=== PATIENT | female | born 1980 | race Caucasian/White ===

== ENCOUNTER 2018-12-20 07:46 | Inpatient (IN) | payer BC ==
[2018-12-20] MEDS: AMPICILLIN 2 GM/NS (PMX) 100 ML IV (08:12)
[2018-12-20] MEDS: LACTATED RINGER'S 1,000 ML IV (08:12)
[2018-12-20 08:19] LABS: ADD MAN DIFF? NO
[2018-12-20 08:23] LABS: WHITE BLOOD COUNT 11.8 10^3/ul (4.8-10.8)
[2018-12-20 08:23] LABS: BASOPHILS % 0.2 % (0.0-2.0); EOSINOPHILS # 0.1 10^3/ul (0.0-0.5); EOSINOPHILS % 0.9 % (0.0-7.0); HEMATOCRIT 42.7 % (37.0-47.0); HEMOGLOBIN 14.3 g/dl (12.0-16.0); LYMPHOCYTES # 2.2 10^3/ul (0.8-2.9); LYMPHOCYTES % 18.2 % (15.0-51.0); MEAN CORPUSCULAR HEMOGLOBIN 31.5 pg (29.0-33.0); MEAN CORPUSCULAR HGB CONC 33.5 g/dl (32.0-37.0); MEAN CORPUSCULAR VOLUME 94.1 fl (82.0-101.0); MEAN PLATELET VOLUME 11.4 fl (7.4-10.4); MONOCYTE # 0.4 10^3/ul (0.3-0.9); MONOCYTES % 3.6 % (0.0-11.0); NEUTROPHILS % 76.4 % (39.0-77.0); PLATELET COUNT 198 10^3/UL (140-415); RED BLOOD COUNT 4.54 10^6/ul (4.20-5.40); RED CELL DISTRIBUTION WIDTH 12.8 % (11.5-14.5)
[2018-12-20] MEDS ORDERED: MISOPROSTOL 200 MCG TAB PR ×2 (08:30→13:00)
[2018-12-20] MEDS ORDERED: CARBOPROST 250 MCG INJ IM ×2 (08:30→13:00)
[2018-12-20] MEDS ORDERED: OXYTOCIN 30 UNITS/LR 500 ML IV ×2 (08:30→13:00)
[2018-12-20] MEDS ORDERED: METHYLERGONOVINE 0.2 MG INJ IM ×2 (08:30→13:00)
[2018-12-20 08:43] LABS: INR 0.89; PROTIME 12.2 Sec (11.9-14.9)
[2018-12-20 08:44] LABS: PARTIAL THROMBOPLASTIN TIME 24.1 Sec (23.0-35.0)
[2018-12-20] MEDS: MINERAL OIL LIGHT 10 ML VIAL TOP (10:58)
[2018-12-20] MEDS: OXYTOCIN 30 UNITS/LR 500 ML IV ×2 (10:58→11:20)
[2018-12-20] MEDS: LIDOCAINE 1% (MPF) 30 ML INJ INJ (11:03)
[2018-12-20] MEDS: IBUPROFEN 600 MG TAB PO ×3 (12:10→18:24)
[2018-12-20] MEDS ORDERED: AMPICILLIN 1 GM/NS (PMX) 50 ML IV (12:30)
[2018-12-20] MEDS ORDERED: OXYCODONE/ASPIRIN (4.88/325) TAB PO ×2 (13:00)
[2018-12-20] MEDS ORDERED: ZOLPIDEM 5 MG TAB PO (13:00)
[2018-12-20 14:48] LABS: RAPID PLASMA REAGIN NONREACTIVE (NR)
[2018-12-20] MEDS: BENZOCAINE 20% 56 ML SPRAY TOP (15:10)
[2018-12-20] MEDS: WITCH HAZEL/GLYCERIN PAD PR (15:10)
[2018-12-20] MEDS: LANOLIN HPA 1 PKT TOP (15:10)
[2018-12-20 19:54] LABS: HEPATITIS B SURFACE ANTIGEN NEGATIVE (NEGATIVE)
[2018-12-20] MEDS: SENNA/DOCUSATE NA (8.6MG/50MG) TAB PO (22:38)
[2018-12-21] MEDS: IBUPROFEN 600 MG TAB PO ×4 (00:06→17:25)
[2018-12-21 08:13] LABS: ADD MAN DIFF? NO
[2018-12-21 08:15] LABS: WHITE BLOOD COUNT 13.3 10^3/ul (4.8-10.8)
[2018-12-21 08:15] LABS: BASOPHILS % 0.2 % (0.0-2.0); EOSINOPHILS # 0.1 10^3/ul (0.0-0.5); EOSINOPHILS % 0.6 % (0.0-7.0); HEMOGLOBIN 11.5 g/dl (12.0-16.0); LYMPHOCYTES # 2.5 10^3/ul (0.8-2.9); LYMPHOCYTES % 18.8 % (15.0-51.0); MEAN CORPUSCULAR HEMOGLOBIN 31.1 pg (29.0-33.0); MEAN CORPUSCULAR HGB CONC 32.9 g/dl (32.0-37.0); MEAN CORPUSCULAR VOLUME 94.6 fl (82.0-101.0); MEAN PLATELET VOLUME 11.7 fl (7.4-10.4); MONOCYTE # 0.6 10^3/ul (0.3-0.9); MONOCYTES % 4.1 % (0.0-11.0); NEUTROPHIL # 10.1 10^3/ul (1.6-7.5); NEUTROPHILS % 75.5 % (39.0-77.0); PLATELET COUNT 149 10^3/UL (140-415); RED CELL DISTRIBUTION WIDTH 13.1 % (11.5-14.5)
[2018-12-21] MEDS: SENNA/DOCUSATE NA (8.6MG/50MG) TAB PO ×2 (09:27→21:12)
[2018-12-22] MEDS: IBUPROFEN 600 MG TAB PO ×2 (06:00)
[2018-12-22] MEDS: SENNA/DOCUSATE NA (8.6MG/50MG) TAB PO (08:47)
[2018-12-22] MEDS: DIPHTH/TET/ACEL PERTUSS (ADULT) 0.5 ML VIAL IM* (09:48)
== END 2018-12-22 14:13 | disposition home or self-care (01) | DRG 805 ==
LOC: OBT 07:46 → L-D 07:48 → PP1 12:43
PROVIDERS: Obstetrics & Gynecology
PROC: 10E0XZZ Delivery of Products of Conception, External Approach (ICD-10-PCS; principal; 2018-12-20)
PROC: 0HQ9XZZ Repair Perineum Skin, External Approach (ICD-10-PCS; 2018-12-20)
DX: O69.81X0 Labor and delivery complicated by cord around neck, without compression, not applicable or unspecified (principal); O45.93 Premature separation of placenta, unspecified, third trimester; Z37.0 Single live birth; O70.0 First degree perineal laceration during delivery; Z3A.38 38 weeks gestation of pregnancy
CPT/HCPCS: 85025; 85610; 85730; 86592; 86850; 86900; 86901; 87340; 88307; 99464